=== PATIENT | male | born 1955 | race Caucasian/White ===

== ENCOUNTER 2021-01-23 14:02 | Emergency (ER) | payer OTHER ==
[~2021-01-23] VITALS: Ht 180.3 cm; Wt 77.1 kg
--- NOTE | ~2021-01-23 | EMS ---
[address] [address] EMS Patient Care Report Name: KATRINA REGALADO Room #: REG RAGHAV Rockwell#: [id number] Admission: 01/23/21 Attend Phys: Discharge: Date of : 51 Report #: [id number] THIS REPORT FOR: //name// Report Transmitted: 01/23/2021 17:[address] [facility] MED-ACT Incident [id number] @ 01/23/2021 13:26 Incident Location [address] [place] [address] Patient KATRINA REGALADO Male, 65 Years 1955 Patient Address [address] [place] [address] Patient History Stroke/CVA, Patient Allergies No known allergies, Patient Medications ASA, Chief Complaint seizure Disposition Transported No Lights/[place] Dispatch Reason Convulsions/Seizure Transported To [facility] Narrative CC: seizure/unresponsive/CVA H: M1134 was dispatched to a C2 seizure at a residence. While responding FD advised pt was critical, M1134 upgraded response. On arrival pt was supine on [address] [address] EMS Patient Care Report Name: KATRINA REGALADO Room #: REG RAGHAV Rockwell#: [id number] Admission: 01/23/21 Attend Phys: Discharge: Date of : 51 Report #: [id number] the ground unresponsive with snoring respirations. FD had pt on non rebreather mask. 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 Family reported the pt was in his bedroom and they heard him stomping his left foot on the ground. Family came in and the pt slumped to the floor and had seizure activity for a minute or less and was foaming at the mouth. Pt was incontinent of urine, no oral or other obvious trauma noted. Family denied recent trauma, change in medications, fever, headache, dizziness or seizure history. Pts snoring respirations turned to normal, pt still unresponsive. Pt rolled onto the dolphin tarp and then to the cot. Pts distraudnaiit, EMS gave her report on pt. She reported they told him he would likely never walk again after his stroke. She reported he has been able to get around on his own. She reported he normally goes to [facility]. She was advised EMS suggested the closest facility in case he was having another stroke. She agreed. Pt taken to ambulance and and IV established. Pt had CBBS and equal chest rise. Pt moved from non rebreather to ETCO2 nasal cannula to monitor respiration. Pt placed in a surgical mask. Assessment: See narrative and assessment tab for details. Treatment: vitals, 12 lead, blood glucose, non rebreather, ETCO2 nasal cannula, successful IV, surgical mask Transport: Pt began to wake up during transport. Pt denied pain. Pt reported he did not recall the incident and was confused. Pts vitals monitored. [facility]ocom to [facility] without questions or orders. At arrival to the ED pt had an episode of vomiting. Pt reported he did not feel nauseated. Destination: Pt [place] to [place], [place] facility. Pt care to ED staff in room 10. Pt had a GCS of 14 at this time. Pt moved from cot to bed via sheet drag. Pt report to ED RN and pt left in ED care without further incident. Initial Vitals @13:38P: 109,SpO2: 99,WA Suspected: false @PTAP: 110,R: 18,BP: 94/72,GCS: 3,Glucose: 123,SpO2: 94,Revised Trauma: 8, @13:48P: 112,R: 13,BP: 115/77,GCS: 5,Temp: 98.4F,EtCO2: 17,SpO2: 95,Revised Trauma: 9, @13:52P: 107,R: 21,BP: 110/71,Pain: 0/10,GCS: 14,EtCO2: 29,SpO2: 95,Revised Trauma: 12,WA Suspected: false Impression Seizures Procedures [facility] [address] [place] [address] EMS Patient Care Report Name: KATRINA REGALADO Room #: ELISABETH Rockwell#: [id number] Admission: 01/23/21 Attend Phys: Discharge: Date of : 51 Report #: [id number] @13:38 12-Lead ECG Response: UnchangedSucceeded @PTAOxygen FlowRate: 15 Device: Non Re-breather Mask (NRB) Response: UnchangedSucceeded @13:35 Oxygen FlowRate: 1 Device: CO2 Nasal Cannula Response: UnchangedSucceeded @13:49 IV Therapy - Saline Lock 20cc (20 ga) Site: Antecubital-Right Response: UnchangedSucceeded Timeline LEASING ASSOCIATE,Oxygen FlowRate: 15 Device: Non Re-breather Mask (NRB) Response: UnchangedSucceeded, LEASING ASSOCIATE,BP: 94/72 M,PULSE: 110,RR: 18 R,SPO2: 94 Ox,ETCO2: ,B,PAIN: ,GCS: 3, 13:24,Call Received 13:24,Psap Call 13:26,Dispatched 13:27,En Route 13:32,On Scene 13:34,At Patient 13:35,Oxygen FlowRate: 1 Device: CO2 Nasal Cannula Response: UnchangedSucceeded, 13:38,12-Lead ECG,Response: UnchangedSucceeded, 13:38,BP: / M,PULSE: 109,RR: R,SPO2: 99 Ox,ETCO2: ,BG: ,PAIN: ,GCS: , 13:48,BP: 115/77 M,PULSE: 112,RR: 13 R,SPO2: 95 Ox,ETCO2: 17 ,BG: ,PAIN: ,GCS: 5, 13:49,IV Therapy - Saline Lock 20cc 20 ga Site: Antecubital-Right,Response: UnchangedSucceeded, 13:51,Depart Scene 13:52,BP: 110/71 M,PULSE: 107,RR: 21 R,SPO2: 95 Ox,ETCO2: 29 ,BG: ,PAIN: 0,GCS: 14, 14:00,At Destination 14:26,Call Closed Disclaimer v1.1 Copyright 2020 [employer] This EMS Care Summary contains data elements from the applicable legal record (which may be displayed differently). It is designed to provide pertinent information for the following purposes: continuity of care, clinical quality, and state data reporting. The complete legal record is available to ED staff and administrators of the receiving hospital in [employer] Patient Tracker. All data is provided "as is."
[2021-01-23 14:28] LABS: ABSOLUTE NEUTROPHILS 6.2 thou/uL (1.4-8.2); BASOPHILS 0.8 % (0.0-2.0); HEMATOCRIT 42.3 % (42.0-52.0); HEMOGLOBIN 14.1 gm/dL (14.0-18.0); LYMPHOCYTES 17.9 % (24.0-44.0); MCH 30.5 pg (26.0-34.0); MCHC 33.4 g/dL (28.0-37.0); MCV 91.5 fL (80.0-100.0); MONOCYTES 10.6 % (1.0-8.0); PLATELET COUNT 382 thou/uL (150-400); POLYS 65.7 % (36.0-66.0); RBC 4.62 mil/uL (4.50-6.00); WBC 9.4 thou/uL (4.0-11.0)
[2021-01-23 14:33] LABS: CALCIUM 8.9 mg/dL (8.5-10.1); CREATININE 1.2 mg/dL (0.7-1.3); POTASSIUM 3.8 mmol/L (3.5-5.1)
[2021-01-23 14:38] LABS: APTT 23.6 Seconds (24.5-32.8); INR 1.02; PROTIME 11.1 Seconds (10.5-12.1)
[2021-01-23 14:43] LABS: ALBUMIN 3.8 g/dL (3.4-5.0); TOTAL BILIRUBIN 0.2 mg/dL (0.2-1.0); TOTAL PROTEIN 6.8 g/dL (6.4-8.2)
[2021-01-23 19:39] VITALS: BP 114/74
--- NOTE | 2021-01-24 07:17 | EKG ---
[address] [address] ELECTROCARDIOGRAM REPORT Name: JORDAN REGALADO [id number] Admission: 01/23/21 Attend Phys: Discharge: 01/23/21 Date of : 51 Report #: [id number] [facility] ED Test Date: 2021-01-23 Test Time: 14:13:06 Pat Name: JORDAN REGALADO Department: Room: Gender: M Automobile Rental Representative: RUSSELL : 1955 Requested By: Kalyn Anderson Order Number: [id number] MD: Isiah García Measurements Intervals [place] Rate: 105 P: 29 MI: 184 QRS: -23 QRSD: 87 T: 55 QT: 352 QTc: 466 Interpretive Statements Sinus tachycardia Inferior infarct, old No previous ECG available for comparison Electronically Signed On 01-24-2021 7:16:57 PUBLIC RELATIONS SUPERVISOR by Isiah García [email or web address] <ELECTRONICALLY SIGNED> By: Isiah García MD, [facility] 01/24/21 0716 1413 1413 Isiah García MD, FACC /EPI
== END 2021-01-23 19:43 | disposition short-term general hospital (02) ==
LOC: ER 14:02
PROVIDERS: Nurse Practitioner Family
DX: G40.89 Other seizures (principal); Z20.822 Contact with and (suspected) exposure to COVID-19; G81.90 Hemiplegia, unspecified affecting unspecified side; Z86.73 Personal history of transient ischemic attack (TIA), and cerebral infarction without residual deficits